=== PATIENT | female | born 1975 | race Two or more races ===

== ENCOUNTER 2018-09-07 19:02 | Emergency (ER) | payer OTHER | END 2018-09-07 22:46 | disposition home or self-care (01) | LOC: FTE 19:02 | DX: R50.9 Fever, unspecified (principal); R05 Cough; R11.0 Nausea; R09.81 Nasal congestion; L03.031 Cellulitis of right toe; M79.10 Myalgia, unspecified site; E11.9 Type 2 diabetes mellitus without complications | CPT/HCPCS: 99283; Z7502 ==